=== PATIENT | male | born 1985 | race African-American/Black ===

== ENCOUNTER 2024-08-15 13:53 | Emergency (ER) | payer OTHER, SELFPAY ==
--- NOTE | ~2024-08-15 | CT_ITS ---
EXAMINATION: CT ABDOMEN AND PELVIS WITHOUT CONTRAST CLINICAL INFORMATION: Severe left flank pain. COMPARISON: None available. TECHNIQUE: Multidetector volumetric imaging was performed from the superior aspect of the liver through the pubic symphysis. Sagittal and coronal reformatted images were obtained on the technologist's workstation. This CT examination was performed using dose optimization techniques as appropriate, variously including the following: *Automated exposure control *Adjustment of mA and/or kV according to patient size (this includes techniques or standardized protocols for targeted exams where dose is matched to indication/reason for exam; i.e. extremities or head) *Use of iterative reconstruction technique DLP: 611 mGy-cm FINDINGS: LUNG BASES: No pleural or pericardial effusion. Small hiatal hernia. LIVER, GALLBLADDER, AND BILIARY TREE: The noncontrast liver is normal in size and contour. 1.9 cm hypodensity in the posterior right hepatic lobe. No biliary ductal dilatation is present. Gallstones are suspected. PANCREAS: Unremarkable. SPLEEN: Unremarkable. ADRENAL GLANDS: Unremarkable. KIDNEYS AND URETERS: Symmetric in size. Bilateral nonobstructing renal calculi. The largest nonobstructing calculus measures 9 mm in the left lower pole. 4 mm calculus in the distal left ureter proximal to the left ureterovesical junction. Mild left hydroureter. No perinephric fluid collection. BLADDER: No bladder calculus. GASTROINTESTINAL TRACT: Small and large bowel loops are of normal caliber. No small bowel obstruction. Appendix is within normal limits. ABDOMINAL WALL: Small fat-containing left adrenal hernia. LYMPH NODES: Few subcentimeter mesenteric lymph nodes. VASCULAR: Normal caliber abdominal aorta. PELVIC VISCERA: Enlarged prostate gland. OSSEOUS STRUCTURES: No destructive bone lesions. CT/CT abdomen pelvis wo IV con IMPRESSION: 4 mm calculus in the distal left ureter. Mild left hydroureter. Bilateral nonobstructing nephrolithiasis. Possible cholelithiasis. Electronically signed by: Jono Castellanos MD 08/15/2024 03:47 PM EST
--- NOTE | ~2024-08-15 | US_ITS ---
EXAMINATION: US SCROTUM CLINICAL INFORMATION: Left testicular pain. COMPARISON: None available. TECHNIQUE: A sonogram of the scrotum was performed assessing grissom-scale appearance and color Doppler flow. Spectral Doppler analysis of the arterial and venous flow were performed in the testes bilaterally. FINDINGS: RIGHT: Right testicle measures 4.6 x 1.9 x 2.7 cm, volume 12.1 mL. No focal testicular parenchymal lesions are visualized. Spectral Doppler analysis of the arterial and venous flow is normal in the right testis. Right epididymal head is normal in size. No right hydrocele or varicocele is seen. Right epididymal Doppler flow is normal. LEFT: Left testicle measures 4.0 x 1.6 x 2.5 cm, volume 8.6 mL. No focal testicular parenchymal lesions are visualized. Spectral Doppler analysis of the arterial and venous flow is normal in the left testis. Left epididymal head is normal in size. No left hydrocele or varicocele is seen. Left epididymal Doppler flow is normal. US/US scrotum IMPRESSION: Unremarkable scrotal ultrasound. Electronically signed by: Jono Castellanos MD 08/15/2024 03:07 PM RAHUL PEREZ
--- NOTE | ~2024-08-15 | US_ITS ---
EXAMINATION: US SCROTUM CLINICAL INFORMATION: Left testicular pain. COMPARISON: None available. TECHNIQUE: A sonogram of the scrotum was performed assessing grissom-scale appearance and color Doppler flow. Spectral Doppler analysis of the arterial and venous flow were performed in the testes bilaterally. FINDINGS: RIGHT: Right testicle measures 4.6 x 1.9 x 2.7 cm, volume 12.1 mL. No focal testicular parenchymal lesions are visualized. Spectral Doppler analysis of the arterial and venous flow is normal in the right testis. Right epididymal head is normal in size. No right hydrocele or varicocele is seen. Right epididymal Doppler flow is normal. LEFT: Left testicle measures 4.0 x 1.6 x 2.5 cm, volume 8.6 mL. No focal testicular parenchymal lesions are visualized. Spectral Doppler analysis of the arterial and venous flow is normal in the left testis. Left epididymal head is normal in size. No left hydrocele or varicocele is seen. Left epididymal Doppler flow is normal. US/US scrotum doppler IMPRESSION: Unremarkable scrotal ultrasound. Electronically signed by: Jono Castellanos MD 08/15/2024 03:07 PM RAHUL PEREZ
[2024-08-15 13:55] VITALS: BP 146/74; PULSE 86; RESP 20; TEMP 36.1; O2SAT 99; BMI 31.4
--- NOTE | 2024-08-15 13:57 | ED.GENADULT ---
HPI - General Adult General Chief complaint: Urogenital-Male Stated complaint: Abd pain Time Seen by Provider: 08/15/24 14:03 Source: patient Mode of arrival: ambulatory Limitations: no limitations History of Present Illness ED Provider: GILLES AMAYA narrative: 39 yo male with no sig PMH noted had some L upper testicular pain yesterday which didn't bother him much until waking up from a nap today post working overnights. He now has severe L testicle pain radiates up to the stomach - has mild nausea. No dysuria, no recent intercourse no concern for STI, no diarrhea, no fevers. He states no trauma or injury to the area. No rash. Pain is severe right now MD complaint: testicular pain Onset (ago): hour(s) (couple) Location: genitals Radiation: non-radiation Severity: severe Quality: stabbing Pain Consistency: constant Relieving factors: none Exacerbating factors: movement Associated symptoms: nausea/vomiting Treatments prior to arrival: none Related Data Previous Rx's ?Medication ?Instructions ?Recorded ibuprofen 400 mg tablet 400 mg PO Q6H PRN pain #20 tabs 08/15/24 ondansetron 4 mg disintegrating 4 mg PO TID PRN nausea and 08/15/24 tablet vomiting 5 days #10 tabs oxycodone 5 mg tablet 5 mg PO Q8H PRN pain #7 tabs 08/15/24 tamsulosin 0.4 mg capsule (Flomax) 0.4 mg PO DAILY #7 caps 08/15/24 Allergies Allergy/AdvReac Type Severity Reaction Status Date / Time No Known Allergies Allergy Verified 08/15/24 13:56 Review of Systems Review of Systems: Constitutional : No Weight loss, No Fever, No Chills ENT/Mouth : No sore throat, No Rhinorrhea Eyes: No Swelling, No Redness Cardiovascular : No Chest Pain, No SOB, No Edema Respiratory : No Cough, No Sputum, No Wheezing Gastrointestinal : Positive Nausea, no Vomiting, no Diarrhea, no abdominal Pain, No Hematochezia, No Melena Genitourinary : No Dysuria, No Urinary Frequency, No Hematuria, No Urgency , pos testicular pain Musculoskeletal : No joint pain, No Myalgias, No Joint Swelling Skin : No Skin Lesions, No rash Neuro : No Weakness, No Numbness, No Dizziness, No Headache Psych : No Anxiety/Panic, No Depression Heme/Lymph: No Bruising, No Lymphadenopathy Endocrine : No Polyuria, No Polydipsia All other systems reviewed and are negative. [facility] Past Medical History Attestation statement: The following information was validated with the patient. Source: old records reviewed Medical History No pertinent past medical history Social History Social History (Updated 08/15/24 @ 14:17 by Tahmina Maurice DO) Patient Tobacco Use Status: Tobacco use Unknown Smoked in Last 30 Days: No Use of substances other than those prescribed or required for medical reasons: No Advance Directives: No Advance Directives Information Provided: No Do you have a plan to hurt others: No Plan Physical Exam ED Vital Signs: Vital Signs - 24 hr 08/15/24 13:55 08/15/24 14:51 08/15/24 15:59 Temperature 97.0 F Pulse Rate 86 73 Respiratory Rate 20 16 20 Blood Pressure 146/74 H 102/51 L Pulse Oximetry 99 98 Oxygen Delivery Method Room Air Room Air 08/15/24 16:00 Temperature Pulse Rate 95 Respiratory Rate 18 Blood Pressure 128/59 L Pulse Oximetry 98 Oxygen Delivery Method Room Air BMI result Body Mass Index 31.4 Appearance: Alert. Oriented X3. in pain mild acute distress. Eyes: Pupils equal, round and reactive to light. ENT: Pharynx normal. Neck: Normal inspection. Neck supple. CVS: Normal heart rate and rhythm. Pulses normal. Respiratory: No respiratory distress. Breath sounds normal. Abdomen: Soft and nontender. : no ttp to spermatic cord, normal Skin: Skin warm and dry. pale skin color. Normal skin turgor. Extremities: No lower extremity edema. No calf ttp Neuro: Oriented X 3. No motor deficit. No sensory deficit. Course Course Course Narrative: RME: 9 year male presents to ED for sudden left testicular pain since last night without any trauma. Patient states left testicular pain radiating to her left lower quadrant abdominal pain patient denies any trauma or dysuria or hematuria. Labs ultrasound ordered. Reevaluation(s) Reevaluation #1: signed out to Dr. Kearney pending CT scan Medications Administered Discontinued Medications Generic Name Dose Route Start Last Admin Trade Name Freq PRN Reason Stop Dose Admin Hydromorphone HCl 1 mg 08/15/24 14:17 08/15/24 15:59 Hydromorphone Hcl 1 Mg/Ml Syringe IVPUSH 08/15/24 14:18 1 mg ONCE ONE Administration Protocol Sodium Chloride 1,000 mls @ 999 mls/hr 08/15/24 14:01 08/15/24 16:21 Ns IV 08/15/24 15:01 Infused .Q1H1M STA Infusion Ketorolac Tromethamine 15 mg 08/15/24 14:03 08/15/24 14:11 Ketorolac Tromethamine 15 Mg/Ml Vial IVPUSH 08/15/24 14:04 15 mg ONCE ONE Administration Morphine Sulfate 4 mg 08/15/24 14:01 08/15/24 14:11 Morphine Sulfate 4 Mg/Ml Cartridge IVPUSH 08/15/24 14:02 4 mg ONCE ONE Administration Protocol Ondansetron HCl 4 mg 08/15/24 14:01 08/15/24 14:11 Ondansetron Hcl 4 Mg/2 Ml Vial IVPUSH 08/15/24 14:02 4 mg ONCE ONE Administration Medical Decision Making Medical Decision Making MDM Narrative: 39 yo male no PMH no trauma to testicle here with severe testicular pain though exam underwhelming at this time suspect more renal colic but will need labs, UA, US for torsion if negative plan for CT scan for renal colic. IV toradol/morphine for pain. Patient is urine shows evidence of blood. CT scan positive for distal ureteral stone. Pain is controlled well-appearing no distress will discharge patient home Differential Diagnosis Differential Diagnoses: The differential diagnosis associated with the presentation includes renal colic, torsion, epididymitis Admission/Observation Consideration of admission/observation: Escalation of care including admission/observation considered Lab Data [facility] Lab Attestation statement: I reviewed the patient's lab results. 08/15/24 14:05 08/15/24 14:05 Labs: Lab Results 08/15/24 08/15/24 Range/Units 14:05 15:05 WBC 5.6 (4.8-10.8) X10*3/uL RBC 4.70 (4.60-5.80) X10*6/uL Hgb 14.5 (14.0-18.0) g/dl Hct 41.6 L (42.0-52.0) % MCV 88.5 (80.0-98.0) fL MCH 30.9 (27.0-33.0) pg MCHC 34.9 (31.0-36.0) g/dl RDW 13.0 (11.0-16.0) % Plt Count 252 (160-400) X10*3/uL MPV 10.5 (9.4-12.4) fL Immature Gran % (Auto) 0.2 (0.0-0.4) % Neut % (Auto) 37.2 L (45-73) % Lymph % (Auto) 46.8 H (20-40) % [place] % (Auto) 8.1 (2-11) % Eos % (Auto) 7.2 H (0-4) % Baso % (Auto) 0.5 (0-2) % Lymph # (Auto) 2.6 (1.2-4.9) X10*3/uL [place] # (Auto) 0.5 (0.1-1.2) X10*3/uL Eos # (Auto) 0.4 (0.0-0.4) X10*3/uL Baso # (Auto) 0.0 (0.0-0.2) X10*3/uL Abs Immat Gran (auto) 0.01 (0.00-0.03) X10*3/uL Absolute Neuts (auto) 2.1 (2.0-8.3) x10*3/uL Absolute Nucleated RBC 0.000 (0.0-0.012) X10*3/uL Nucleated RBC % (auto) 0.0 (0.0-0.2) /100WBC Sodium 142 (135-145) mmol/L Potassium 3.4 (3.3-5.1) mmol/L Chloride 104 (96-108) mmol/L Carbon Dioxide 27 (22-29) mmol/L Anion Gap 14 (12-20) BUN 13 (9-16) mg/dL Creatinine 0.93 (0.5-1.4) mg/dL Estim Creat Clear Calc 131.0 Estimated GFR > 60 Random Glucose 122 H (60-115) mg/dL Calcium 9.7 (8.4-10.2) mg/dL Total Bilirubin 1.0 (0.0-1.0) mg/dL AST 24 (5-37) U/L ALT 32 (0-40) U/L Alkaline Phosphatase 72 (39-117) U/L Total Protein 7.9 (6.5-8.0) g/dL Albumin 4.5 (3.5-5.0) g/dL Urine Color Dark Yellow Urine Appearance Clear Urine pH 6.0 (5.0-9.0) Ur Specific [place] >= 1.030 H (1.005-1.025) Urine Protein 30 (1+) H (Neg-Trace) mg/dL Urine Glucose (UA) Negative (Negative) mg/dL Urine Ketones Trace (Negative) mg/dL Urine Blood Large (3+) H (Negative) Urine Nitrite Negative (Negative) Ur Leukocyte Esterase Trace H (Negative) Urine RBC >20 H (0-2) /HPF Urine WBC 0-5 (0-5) /HPF Ur Squamous Epith Cells 0-2 (0-2) /HPF Urine Bacteria None Seen (None Seen) Hyaline Casts 3-5 (0-2) /LPF Independent Interpretation I performed an independent interpretation of an: Ultrasound (normal ) and CT Scan Radiology Impression Discussion of test interpretation with radiology: I have reviewed the radiologist's reading. Discharge Plan Discharge Clinical Impression: Left testicular pain, Renal colic Patient Disposition: Home, Self-Care Instructions: Renal Colic (ED) Prescriptions: New tamsulosin [Flomax] 0.4 mg capsule 0.4 mg PO DAILY Qty: 7 0RF ibuprofen 400 mg tablet 400 mg PO Q6H PRN (Reason: pain) Qty: 20 0RF ondansetron 4 mg tablet,disintegrating 4 mg PO TID PRN (Reason: nausea and vomiting) 5 Days Qty: 10 0RF oxycodone 5 mg tablet 5 mg PO Q8H PRN (Reason: pain) Qty: 7 0RF Rx Instructions: Partial Fill upon patient request. Referrals: Malik Knox MD [Physician] - 08/18/24 Print Language: Spanish
[2024-08-15] MEDS: 0.9 % Sodium Chloride 1,000 ML 999 ML IV (14:06)
[2024-08-15 14:11] LABS: MANUAL DIFF FLAG NO
[2024-08-15] MEDS: ondansetron HCL 4 MG/2 ML VIAL IVPUSH (14:11)
[2024-08-15] MEDS: Morphine Sulfate 4 MG/ML CARTRIDGE IVPUSH (14:11)
[2024-08-15] MEDS: Ketorolac Tromethamine 15 MG/ML VIAL IVPUSH (14:11)
[2024-08-15 14:12] LABS: Basophils Percent Auto 0.5 % (0-2); Eosinophils Absolute Auto 0.4 X10*3/uL (0.0-0.4); Eosinophils Percent Auto 7.2 % (0-4); Hematocrit 41.6 % (42.0-52.0); Hemoglobin 14.5 g/dl (14.0-18.0); Imm Gran Abs Auto 0.01 X10*3/uL (0.00-0.03); Imm Gran Pct Auto 0.2 % (0.0-0.4); Lymphocytes Absolute Auto 2.6 X10*3/uL (1.2-4.9); Lymphocytes Percent Auto 46.8 % (20-40); Mean Corpuscular HGB Conc 34.9 g/dl (31.0-36.0); Mean Corpuscular Hemoglobin 30.9 pg (27.0-33.0); Mean Corpuscular Volume 88.5 fL (80.0-98.0); Mean Platelet Volume 10.5 fL (9.4-12.4); Monocytes Absolute Auto 0.5 X10*3/uL (0.1-1.2); Monocytes Percent Auto 8.1 % (2-11); Neutrophils Absolute Auto 2.1 x10*3/uL (2.0-8.3); Neutrophils Percent Auto 37.2 % (45-73); Platelet Count 252 X10*3/uL (160-400); White Blood Count 5.6 X10*3/uL (4.8-10.8)
[2024-08-15 14:28] LABS: Alanine Aminotransferase 32 U/L (0-40); Albumin Level 4.5 g/dL (3.5-5.0); Alkaline Phosphatase 72 U/L (39-117); Anion Gap 14 (12-20); Aspartate Amino Transferase 24 U/L (5-37); Blood Urea Nitrogen 13 mg/dL (9-16); Calcium 9.7 mg/dL (8.4-10.2); Carbon Dioxide 27 mmol/L (22-29); Chloride 104 mmol/L (96-108); Estimated Glomerular Filt Rate > 60; Glucose Random 122 mg/dL (60-115); Potassium 3.4 mmol/L (3.3-5.1); Sodium 142 mmol/L (135-145); Total Protein 7.9 g/dL (6.5-8.0)
[2024-08-15 14:51] VITALS: BP 102/51; PULSE 73; RESP 16; O2SAT 98
[2024-08-15 15:15] LABS: Appearance Urine Clear; Color Urine Dark Yellow; Glucose Urine UA Negative (Negative); Leukocyte Esterase Urine Trace (Negative); Nitrite Urine Negative (Negative); Specific Gravity - Urine >= 1.030 (1.005-1.025); UMIC TRIGGER UACC YES; Urine Blood Large (3+) (Negative); Urine Ketones Trace mg/dL (Negative); Urine Protein 30 (1+) mg/dL (Neg-Trace)
[2024-08-15 15:17] LABS: Bacteria Urine None Seen (None Seen); RBC Urine >20 /HPF (0-2); Squamous Epithelial Cell Urine 0-2 /HPF (0-2); WBC Urine 0-5 /HPF (0-5)
[2024-08-15 15:59] VITALS: RESP 20
[2024-08-15] MEDS: HYDROmorphone HCl 1 MG/ML SYRINGE IVPUSH (15:59)
[2024-08-15 16:00] VITALS: BP 128/59; PULSE 95; RESP 18; O2SAT 98
[2024-08-15 16:59] VITALS: BP 128/59; PULSE 95; RESP 18; TEMP 36.7; O2SAT 98
[2024-08-16 03:52] LABS: CT PCR NOT DETECTED (Not Detect.); NG PCR NOT DETECTED (Not Detect.)
== END 2024-08-15 17:00 | disposition home or self-care (01) ==
PROVIDERS: Physician Assistant; Emergency Provider Emergency Medicine Emergency Medical Services; PCP Internal Medicine
DX: N50.812 Left testicular pain (principal); R11.0 Nausea; N23 Unspecified renal colic; R80.0 Isolated proteinuria; Z79.899 Other long term (current) drug therapy
CPT/HCPCS: 36415; 74176; 76870; 80053; 81001; 85025; 87491; 87591; 93975; 96374; 96375; 99284; 99285; J1171; J1885; J2270; J2405

== ENCOUNTER 2024-11-25 07:52 | Outpatient (AMB) | payer OTHER, SELFPAY ==
--- NOTE | 2024-11-25 08:00 | A.OFFVIS_ITS ---
Intake Visit Reasons: bilateral nephrolithiasis Intake Note: New Patient presents for initial visit for bilateral nephrolithiasis Urology Medications: none Blood Thinner: none Coffee Urn Attendant Required: No Accompanied by: Self / Same As Patient Allergies No Known Allergies Allergy (Verified 11/25/24 08:39) Medication List - Last Reconciled 11/25/24 by GEE King multivitamin 1 tab PO DAILY HPI Comments Details: Tomas is a very pleasant 39-year-old male patient of Dr. Megan Brock. He presents to the office today as a new patient for nephrolithiasis. In discussion with the patient today he reports having seeked emergency room care approximately 3 months ago for left-sided testicular discomfort and flank pain he had been experiencing at which time a CT of the abdomen was ordered and performed and these results were communicated with the patient today. CT 08/22 notes kidneys are symmetric in size. Bilateral nonobstructing renal calculi. The largest nonobstructing calculus measures 9 mm in the left lower pole. There is a 4 mm calculus in the left distal ureter proximal to the left UVJ. Mild left hydroureter. No perinephric fluid collection. No bladder calculus noted. When asked he has no prior history of renal stones and or surgical intervention for nephrolithiasis. Patient reports pain he had been experiencing has since subsided however he does not recall passage of stone. He currently denies any bothersome urinary issues. He denies urinary urgency, urinary frequency, incontinence, nocturia, hematuria, dysuria, foul smelling urine, changes to urinary stream, flank pain, fever, and or chills. He is happy with his current voiding parameters. We discussed at length potential causes of nephrolithiasis as well as further workup in risks and benefits of these interventions. All questions were answered. He otherwise offers no other issues or concerns at this time. Patient was informed and verbally consented to the use of an ambient scribe for clinic note documentation during this visit. Discussion Notes We reviewed the stone types and the possibility that his stones could be calcium oxalate-based, advising him to monitor dietary intake accordingly. The importance of hydration was emphasized, suggesting a daily urinary output goal equivalent to 2-2.5 liters. Vitamin B6 supplementation was recommended to aid stone prevention. We agreed to further discuss management options following the ultrasound results. Patient Instructions - Increase fluid intake to ensure urinary output matches approximately 2.5 liters per day. - Begin taking Vitamin B6, 100 mg, orally daily. - Schedule and complete ultrasound as directed for follow-up evaluation of k idney stones. - Add fresh lemon juice to water throughout the day as a potential aid. - Monitor for any return of pain; if symptoms occur, contact the office or seek medical attention. - Follow-up after the ultrasound results are reviewed for additional recommendations. [facility] Medical History No pertinent past medical history Social History Patient Tobacco Use Status: Tobacco use Unknown Review of Systems Const All systems reviewed & are unremarkable except as noted in HPI and below Physical Exam Const General: cooperative, healthy appearing, comfortable, no acute distress, well developed, alert and awake Orientation/consciousness: patient oriented x3 Limitations: no limitations HEENT Head: Yes normal to inspection, Yes normocephalic and Yes atraumatic Ears: hearing grossly normal bilaterally Eyes General: appearance normal, both eyes and all related structures Neck Neck: Yes normal visual inspection and Yes trachea midline Chest Chest palpation & inspection: normal inspection of the chest Resp Effort & Inspection: normal respiratory effort and able to speak in complete sentences Cardio Rate: regular rate GI Inspection: Yes normal to inspection General: Yes no CVA tenderness Back/Spine/Pelvis Back: no CVA tenderness Skin General skin exam: no rashes or lesions noted Neuro General: patient oriented x3 Extrem General: Yes normal to inspection Psych Appearance: grossly normal and well kempt Mental Status: mental status grossly normal Speech and movement: Normal speech and movement present and Clear speech present Affect: normal affect Attitude: cooperative Thought process: Normal thought process present Thought content: Normal thought content present Insight: Fair insight present (Psych) Judgement: Fair judgement present (Psych) Results AMB Urinalysis, Automated UA Leukoctes 0 Leia/uL Last Edit by Marcos Thompson on 11/25/24 08:17 UA Nitrite Negative Last Edit by [employer] Bress on 11/25/24 08:17 UA Urobilinogen 0.2 mg/dL Last Edit by Speaking[employer] Bress on 11/25/24 08:17 UA Protein 15 mg/dL Last Edit by [employer] Nadegess on 11/25/24 08:17 UA pH 6.0 Last Edit by [employer] Jay on 11/25/24 08:17 UA Blood 10 Harvey/uL Last Edit by [employer] Music[employer]ira on 11/25/24 08:17 UA Specific [place] 1.025 Last Edit by [employer] on 11/25/24 08:17 UA Ketone Last Edit by [employer] on 11/25/24 08:17 UA Bilirubin 0 mg/dL Last Edit by [employer] on 11/25/24 08:17 UA Glucose 0 mg/dL Last Edit by [employer]hardik [employer] on 11/25/24 08:17 Results Reviewed Results Reviewed: Laboratory Last Values Urine pH (Auto) 6.0 11/25/24 08:16 Specific [place] (Auto) 1.025 11/25/24 08:16 Urine Protein (Auto) 15 mg/dL 11/25/24 08:16 Glucose (UA)(Auto) 0 mg/dL 11/25/24 08:16 Urine Blood (Auto) 10 Harvey/uL 11/25/24 08:16 Urine Nitrite (Auto) Negative 11/25/24 08:16 Urine Bilirubin (Auto) 0 mg/dL 11/25/24 08:16 Urine Urobilinogen (Auto) 0.2 mg/dL 11/25/24 08:16 Leukocyte Esterase (Auto) 0 Leia/uL 11/25/24 08:16 Date of Service: 08/15/24 EXAMINATION: CT ABDOMEN AND PELVIS WITHOUT CONTRAST FINDINGS: LUNG BASES: No pleural or pericardial effusion. Small hiatal hernia. LIVER, GALLBLADDER, AND BILIARY TREE: The noncontrast liver is normal in size and contour. 1.9 cm hypodensity in the posterior right hepatic lobe. No biliary ductal dilatation is present. Gallstones are suspected. PANCREAS: Unremarkable. SPLEEN: Unremarkable. ADRENAL GLANDS: Unremarkable. KIDNEYS AND URETERS: Symmetric in size. Bilateral nonobstructing renal calculi. The largest nonobstructing calculus measures 9 mm in the left lower pole. 4 mm calculus in the distal left ureter proximal to the left ureterovesical junction. Mild left hydroureter. No perinephric fluid collection. BLADDER: No bladder calculus. GASTROINTESTINAL TRACT: Small and large bowel loops are of normal caliber. No small bowel obstruction. Appendix is within normal limits. ABDOMINAL WALL: Small fat-containing left adrenal hernia. LYMPH NODES: Few subcentimeter mesenteric lymph nodes. VASCULAR: Normal caliber abdominal aorta. PELVIC VISCERA: Enlarged prostate gland. OSSEOUS STRUCTURES: No destructive bone lesions. IMPRESSION: 4 mm calculus in the distal left ureter. Mild left hydroureter. Bilateral nonobstructing nephrolithiasis. Possible cholelithiasis. Assessment & Plan Assessment & Plan (1) Nephrolithiasis: Code(s): N20.0 - Calculus of kidney Category: Medical Plan In office urinalysis results with the patient today; as noted above. Recent CT results reviewed with the patient today; as noted above. We discussed at length potential causes of nephrolithiasis as well as further workup in risks and benefits of these interventions. Will obtain renal ultrasound for further assessment evaluation. Patient currently denies any bothersome urinary issues. He reports be happy with current voiding parameters. Discussed, educated, and stressed at length the importance of adequate hydration in relation to nephrolithiasis as well as overall health and well-being. Follow-up in 1-3 months with imaging to be completed prior; or sooner with any issues, concerns, and or questions. Orders: Orders AMB Urinalysis Automated Today GEE King Z13.9 - Encounter for screening, unspecified Medications: Discontinued ondansetron Discontinued Reason: Patient no longer taking 4 mg PO TID PRN 10 tabs 0RF nausea and vomiting 5 days Brandyce Bress oxycodone Partial Fill upon patient request. Discontinued Reason: Patient no longer taking 5 mg PO Q8H PRN 7 tabs 0RF pain Brandyce Bress tamsulosin (Flomax) Discontinued Reason: Patient no longer taking 0.4 mg PO DAILY 7 caps 0RF Brandyce Bress ibuprofen Discontinued Reason: Patient no longer taking 400 mg PO Q6H PRN 20 tabs 0RF pain Brandyce Bress Patient Instructions: The patient had an opportunity to ask questions regarding the treatment plan. All questions were answered. Physical exam, labs, and imaging were discussed and reviewed in detail. As well as risks, benefits, and discussion of treatment choices. No major barriers to understanding were identified. The patient expressed understanding and agreement with the above treatment plan. The patient was made aware they should contact our office by phone for worsening of their current condition, the appearance of new symptoms, or with any questions or concerns. Compliance is encouraged with any medications and follow up testing that is ordered. It is a privilege to be allowed the opportunity to participate in? your urological care.? Again, if you have any questions or concerns If you have any questions or concerns please do not hesitate to contact me. The office is [phone]. This note is constructed using voice recognition software. While every effort has been made to ensure accuracy incoming freight clerk errors may have been included. Yours sincerely, GEE King Coding Level of Care Code New Pt Level 3 (83696) Diagnoses Nephrolithiasis N20.0
== END 2024-11-25 08:36 | disposition home or self-care (01) ==
PROVIDERS: PCP Internal Medicine; Visit Provider Nurse Practitioner Family
DX: Z13.9 Encounter for screening, unspecified (principal); N20.0 Calculus of kidney
CPT/HCPCS: 99203

== ENCOUNTER → 2024-11-25 07:52 | Outpatient (BNVA) | payer SELFPAY | PROVIDERS: PCP Internal Medicine; Visit Provider Nurse Practitioner Family | DX: N20.0 Calculus of kidney (principal) | CPT/HCPCS: 81003 ==

== ENCOUNTER 2024-12-09 11:04 | Outpatient (REF) | payer OTHER, SELFPAY ==
--- NOTE | ~2024-12-09 | US_ITS ---
CLINICAL HISTORY: N20.0 - Calculus of kidney US renal with Color Doppler Comparison: None Findings: Right kidney normal size and echotexture, 12.2 cm length. No hydronephrosis or mass. Normal color flow. Nonobstructing caliceal stones lower pole measuring 3 x 3 x 2 mm and 4 x 3 x 3 mm. Left kidney normal size and echotexture, 13.5 cm length. No hydronephrosis or mass. Normal color flow. Nonobstructing caliceal stone lower pole measuring 10 x 7 x 9 mm, midpole measuring 6 x 5 x 4 mm and upper pole measuring 5 x 5 x 5 mm. Impression: 1. Bilateral nephrolithiasis. No hydronephrosis. This document has been electronically signed by: Corby Rinaldi MD on 12/10/2024 09:10:13
== END 2024-12-09 11:05 | disposition home or self-care (01) ==
LOC: HO.HMGCX 11:04
PROVIDERS: PCP Family Medicine; Visit Provider Nurse Practitioner Family
DX: N20.0 Calculus of kidney (principal)
CPT/HCPCS: 76775

== ENCOUNTER → 2024-12-09 11:07 | Outpatient (BNV) | payer OTHER, SELFPAY | PROVIDERS: PCP Family Medicine; Visit Provider Radiology Diagnostic Radiology | DX: N20.0 Calculus of kidney (principal) | CPT/HCPCS: 76775 ==

== ENCOUNTER 2024-12-16 16:47 | Outpatient (AMB) | payer OTHER, SELFPAY ==
--- NOTE | 2024-12-16 16:40 | A.OFFVIS_ITS ---
Intake Visit Reasons: 3 weeks follow up/ US(pending 12/09) Intake Note: Patient presents for follow up visit for bilateral nephrolithiasis and ultrasound results Imaging Completed: 12/09/24 Urology Medications: none Blood Thinner: none Race Starter Required: No Accompanied by: Self / Same As Patient Allergies No Known Allergies Allergy (Verified 11/25/24 08:39) Medication List - Last Reconciled 12/16/24 by GEE King multivitamin 1 tab PO DAILY HPI Comments Details: Tomas is a very pleasant 39-year-old male patient of Dr. Rocha. He is being followed up on today via video telehealth. Of note, patient was seen approximately 1 month ago as a new patient for nephrolithiasis at which time a renal ultrasound was ordered for further assessment evaluation. These results were reviewed and communicated with the patient today. 12/21 bilateral kidneys are normal in size and echotexture. Nonobstructing renal stones noted bilaterally. No hydronephrosis. Right kidney with 3 mm and 4 mm nonobstructing caliceal stones. Left kidney with 10 mm, 6 mm, and 5 mm nonobstructing stones. We discussed resolution of 4 mm calculus in the left distal ureter proximal to the left UVJ noted on previous CT 08/22. He currently denies any bothersome urinary issues or concerns. He reports be happy with current voiding parameters. Discusses continuing to attempt to drink plenty of water daily. We discussed potential causes of nephrolithiasis as well as further intervention to include imaging and metabolic workup. He denies any previous history of nephrolithiasis and or surgical intervention for nephrolithiasis. He denies urinary urgency, urinary frequency, incontinence, nocturia, hematuria, dysuria, foul smelling urine, changes to urinary stream, flank pain, fever, and or chills. He is happy with his current voiding parameters. We discussed at length potential causes of nephrolithiasis as well as further workup in risks and benefits of these interventions. All questions were answered. He otherwise offers no other issues or concerns at this time. Discussion Notes We reviewed the stone types and the possibility that his stones could be calcium oxalate-based, advising him to monitor dietary intake accordingly. The importance of hydration was emphasized, suggesting a daily urinary output goal equivalent to 2-2.5 liters. Vitamin B6 supplementation was recommended to aid stone prevention. We agreed to further discuss management options following the ultrasound results. [facility] Medical History No pertinent past medical history Social History Patient Tobacco Use Status: Tobacco use Unknown Review of Systems Const All systems reviewed & are unremarkable except as noted in HPI and below Physical Exam Const General: cooperative, healthy appearing, comfortable, no acute distress, well developed, alert and awake Resp Effort & Inspection: normal respiratory effort and able to speak in complete sentences Psych Appearance: grossly normal and well kempt Mental Status: mental status grossly normal Speech and movement: Clear speech present Affect: normal affect Attitude: cooperative Thought content: Normal thought content present Insight: Fair insight present (Psych) Judgement: Fair judgement present (Psych) Telehealth Telehealth Telehealth Platform: [employer] Location of provider rendering services: practice address Location of patient: address on file Patient Identification confirmed using: Name, : Yes Telehealth method: video Patient verbally consented to treatment: Yes Patient verbally consented to billing insurance company: Yes Patient informed of any privacy concerns related to visit: Yes Minutes spent on Phone/Video with Pt.: 15 Results Reviewed Results Reviewed: Date of Service: 12/09/24 Procedure(s): US renal BI Findings: Right kidney normal size and echotexture, 12.2 cm length. No hydronephrosis or mass. Normal color flow. Nonobstructing caliceal stones lower pole measuring 3 x 3 x 2 mm and 4 x 3 x 3 mm. Left kidney normal size and echotexture, 13.5 cm length. No hydronephrosis or mass. Normal color flow. Nonobstructing caliceal stone lower pole measuring 10 x 7 x 9 mm, midpole measuring 6 x 5 x 4 mm and upper pole measuring 5 x 5 x 5 mm. Impression: 1. Bilateral nephrolithiasis. No hydronephrosis. Assessment & Plan Assessment & Plan (1) Nephrolithiasis: Code(s): N20.0 - Calculus of kidney Category: Medical Plan Recent renal imaging results reviewed with the patient today; as noted above. Patient currently denies any bothersome urinary issues or concerns. He reports be happy with current voiding parameters. We discussed at length potential causes of nephrolithiasis as well as further workup to include imaging and metabolic workup. Discussed, educated, and stressed the importance of continuing to drink plenty of water daily. Continue adding 1 oz of lemon juice to water daily. Will obtain CT KUB for further assessment evaluation. Follow-up in 1-3 months with imaging to be completed prior; or sooner with any issues, concerns, and or questions. Orders: Orders CT kidney stone 12/16/24 N20.0 - Calculus of kidney Patient Instructions: The patient had an opportunity to ask questions regarding the treatment plan. All questions were answered. Physical exam, labs, and imaging were discussed and reviewed in detail. As well as risks, benefits, and discussion of treatment choices. No major barriers to understanding were identified. The patient expressed understanding and agreement with the above treatment plan. The patient was made aware they should contact our office by phone for worsening of their current condition, the appearance of new symptoms, or with any questions or concerns. Compliance is encouraged with any medications and follow up testing that is ordered. It is a privilege to be allowed the opportunity to participate in? your urological care.? Again, if you have any questions or concerns If you have any questions or concerns please do not hesitate to contact me. The office is [phone]. This note is constructed using voice recognition software. While every effort has been made to ensure accuracy counselor supervisor errors may have been included. Yours sincerely, GEE King Coding Level of Care Code Tele Est Pt Level 3 (27563) Diagnoses Nephrolithiasis N20.0
== END 2024-12-16 16:50 | disposition home or self-care (01) ==
LOC: HO.HUSH 16:47
PROVIDERS: PCP Family Medicine; Visit Provider Nurse Practitioner Family
DX: N20.0 Calculus of kidney (principal)
CPT/HCPCS: 99213

== ENCOUNTER 2025-05-16 07:27 | Outpatient (REF) | payer OTHER, SELFPAY ==
--- NOTE | ~2025-05-16 | CT_ITS ---
CLINICAL HISTORY: N20.0 - Calculus of kidney CT abdomen and pelvis without contrast Comparison: US - US RENAL BI - 12/09/24 11:13 EDT Findings: No consolidation or effusion. Unremarkable gallbladder and solid organs. Left kidney lower pole 1.0 cm nonobstructing stone. Additional at least 2 punctate nonobstructing stones are noted within the left kidney. No bowel obstruction, pneumoperitoneum, or pneumatosis. Pelvic contents unremarkable. Normal appendix. The bones are intact. IMPRESSION: No acute findings. Left kidney lower pole 1.0 cm nonobstructing stone. Additional at least 2 punctate nonobstructing stones are noted within the left kidney. This document has been electronically signed by: Tyson Sandhu MD on 05/16/2025 20:38:46
== END 2025-05-16 07:28 | disposition home or self-care (01) ==
LOC: HO.CT 07:27
PROVIDERS: PCP Family Medicine; Visit Provider Nurse Practitioner Family
DX: N20.0 Calculus of kidney (principal)
CPT/HCPCS: 74176

== ENCOUNTER → 2025-05-16 07:28 | Outpatient (BNV) | payer OTHER, SELFPAY | PROVIDERS: PCP Family Medicine; Visit Provider Student in an Organized Health Care Education/Training Program | DX: N20.0 Calculus of kidney (principal) | CPT/HCPCS: 74176 ==

== ENCOUNTER 2025-07-13 07:23 | Outpatient (AMB) | payer OTHER, SELFPAY ==
--- NOTE | 2025-07-13 07:23 | A.OFFVIS_ITS ---
Intake Visit Reasons: discuss CT scan results Intake Note: Patient presents for follow up visit for bilateral nephrolithiasis and CT results Imaging Completed: 05/16/25 Urology Medications: none Blood Thinner: none [facility] Counselor Required: No Accompanied by: Self / Same As Patient Allergies No Known Allergies Allergy (Verified 07/13/25 09:03) Medication List - Last Reconciled 07/13/25 by GEE King multivitamin 1 tab PO DAILY HPI Comments Details: Tomas is a very pleasant 40-year-old male patient of Dr. Rocha. He is being followed up on today via video telehealth for his history of nephrolithiasis. In discussion with the patient today reports to be doing and feeling well. He d oes report noting intermittent episodes of dysuria over the last few weeks. However describes these episodes as infrequent and self-limiting. Recent CT KUB results reviewed with the patient today 05/23 Left kidney lower pole 1.0 cm nonobstructing stone. Additional at least 2 punctate nonobstructing stones are noted within the left kidney. He reports he continues to drink plenty of water daily. We did discussed further treatment options to include surveillance monitoring verses ureteroscopy verses lithotripsy. We discussed risks and benefits of these interventions. He does have a previous history of nephrolithiasis late last year however was able to independently pass his stone never requiring surgical intervention. He denies urinary urgency, urinary frequency, incontinence, nocturia, hematuria, foul smelling urine, changes to urinary stream, flank pain, fever, and or chills. We discussed at length potential causes of nephrolithiasis. All questions were answered. He otherwise offers no other issues or concerns at this time. [facility] Medical History No pertinent past medical history Social History Patient Tobacco Use Status: Tobacco use Unknown Review of Systems Const All systems reviewed & are unremarkable except as noted in HPI and below Physical Exam Const General: cooperative, healthy appearing, comfortable, no acute distress, well developed, alert and awake Orientation/consciousness: patient oriented x3 Resp Effort & Inspection: normal respiratory effort and able to speak in complete sentences Neuro General: patient oriented x3 Psych Appearance: grossly normal and well kempt Mental Status: mental status grossly normal Speech and movement: Normal speech and movement present and Clear speech present Affect: normal affect Attitude: cooperative Thought process: Normal thought process present Thought content: Normal thought content present Insight: Fair insight present (Psych) Judgement: Fair judgement present (Psych) Telehealth Telehealth Telehealth Platform: [employer] Location of provider rendering services: practice address Location of patient: address on file Patient Identification confirmed using: Name, : Yes Telehealth method: video Patient verbally consented to treatment: Yes Patient verbally consented to billing insurance company: Yes Patient informed of any privacy concerns related to visit: Yes Minutes spent on Phone/Video with Pt.: 20 Results Reviewed Results Reviewed: Date of Service: 05/16/25 Procedure(s): CT kidney stone Findings: No consolidation or effusion. Unremarkable gallbladder and solid organs. Left kidney lower pole 1.0 cm nonobstructing stone. Additional at least 2 punctate nonobstructing stones are noted within the left kidney. No bowel obstruction, pneumoperitoneum, or pneumatosis. Pelvic contents unremarkable. Normal appendix. The bones are intact. IMPRESSION: No acute findings. Left kidney lower pole 1.0 cm nonobstructing stone. Additional at least 2 punctate nonobstructing stones are noted within the left kidney. Assessment & Plan Assessment & Plan (1) Dysuria: Code(s): R30.0 - Dysuria Category: Medical (2) Nephrolithiasis: Code(s): N20.0 - Calculus of kidney Category: Medical Plan: Plan Extracorporeal Shock Wave Lithotripsy We discussed the nature of the decision and reasonable alternatives for performing the above surgery. Interventions include chemical dissolution, ESWL, ureteroscopy with laser lithotripsy and stent placement, PCNL. ? Options such as medical therapy were discussed. The relative uncertainties and benefits related to each alternate procedure were adequately discussed. General surgical risks including, but not limited to, pain, bleeding, infection, myocardial infarction, pulmonary embolus, deep vein thrombosis and cerebrovascular accident which may result in further hospitali zation were discussed.? Full disclosure of the procedure as well as all major risks, benefits and complications were discussed including but not limited to risks of bleeding, injury to the kidney with hematoma or laith-hematoma, failure to fragments stone, potential for ureteric obstruction from stone passage and need for secondary procedures.? There is a small long-term risk of hypertension and a question arun of diabetes.? Success rate of fragmentation and passage is approximately 70- 75%.? This is compared to the risks and benefits for ureteroscopy which has a higher success rate but is a more invasive procedure. The success rate of the procedure was discussed. Success of the procedure in the short-term does not necessarily guarantee that long-term success will be maintained. Suitable follow up will need to be maintained. The patient showed understanding of the discussion as well as the typical recovery time, and the outpatient nature of this procedure. Opportunity was given for questions. Repeat-back protocol used to confirm understanding. They wish to proceed with left ESWL Plan Recent CT KUB results reviewed with the patient today; as noted above; We discussed ureteroscopy verses as well versus surveillance monitoring; risks and benefits were discussed at length. All questions were answered. Will obtain urinalysis for further assessment evaluation; will await results for potential treatment We discussed the importance of adequate hydration relation to nephrolithiasis as well as overall health and well-being. Will schedule for left-sided ESWL as discussed Follow-up per doctor's orders; or sooner with any issues, concerns, and or questions. Orders: Orders UA CC w/rflx Micro + Cult Today R30.0 - Dysuria Patient Instructions: The patient had an opportunity to ask questions regarding the treatment plan. All questions were answered. Physical exam, labs, and imaging were discussed and reviewed in detail. As well as risks, benefits, and discussion of treatment choices. No major barriers to understanding were identified. The patient expressed understanding and agreement with the above treatment plan. The patient was made aware they should contact our office by phone for worsening of their current condition, the appearance of new symptoms, or with any questions or concerns. Compliance is encouraged with any medications and follow up testing that is ordered. It is a privilege to be allowed the opportunity to participate in? your urological care.? Again, if you have any questions or concerns If you have any questions or concerns please do not hesitate to contact me. The office is [phone]. This note is constructed using voice recognition software. While every effort has been made to ensure accuracy [employer] systems administrator errors may have been included. Yours sincerely, GEE King Coding Level of Care Code Tele Est Pt Level 4 (31326) Diagnoses Dysuria R30.0 Nephrolithiasis N20.0
== END 2025-07-13 08:30 | disposition home or self-care (01) ==
LOC: HO.HUSH 07:23
PROVIDERS: PCP Family Medicine; Visit Provider Nurse Practitioner Family
DX: R30.0 Dysuria (principal); N20.0 Calculus of kidney
CPT/HCPCS: 98967

== ENCOUNTER 2025-08-17 05:46 | Day surgery (SDC) | payer OTHER, SELFPAY ==
--- NOTE | ~2025-08-17 | XR_ITS ---
CLINICAL HISTORY: left kidney stone 1 view abdomen Comparison: None provided Findings: Included lung bases unremarkable. No plain film images of pneumoperitoneum or pneumatosis. The bowel loops are nondilated. There is moderate amount of stool in the colon There is a subcentimeter stone in the topography of the lower polar region of the left kidney. No acute fractures. IMPRESSION: The bowel gas pattern is within normal limits Left renal stone. This document has been electronically signed by: Mark Chun MD on 08/17/2025 06:48:39
[2025-08-17 06:24] VITALS: BMI 29.9
[2025-08-17 06:39] VITALS: BP 122/75; PULSE 77; RESP 16; TEMP 36.3; O2SAT 98
[2025-08-17] MEDS: Lactated Ringers 1,000 ML 100 ML IVCONT (06:47)
--- NOTE | 2025-08-17 07:15 | HO.ANESPROP2 ---
Documented by User: Radha Tucker NP 08/15/25 09:44 HPI - Anesthesia Eval Consult details Narrative: 40yo M for Cholecystectomy Laparoscopic,possible open PMFSH Active Problems Active Problems: All Active Problems Dysuria (Acute) Nephrolithiasis (Acute) Past Medical History Medical History No pertinent past medical history Surgical History Surgical History (Updated 08/17/25 @ 06:23 by Shannan Hodges RN) H/O shoulder surgery Social History Social History Patient Tobacco Use Status: Never used Tobacco Use of substances other than those prescribed or required for medical reasons: Yes Are you DNR?: No Advance Directives: No Advance Directives Information Provided: Yes Meds Allergies Allergy/AdvReac Type Severity Reaction Status Date / Time banana Allergy Anaphylaxis Verified 08/17/25 06:23 walnut Allergy Anaphylaxis Verified 08/17/25 06:23 watermelon Allergy Anaphylaxis Verified 08/17/25 06:23 Home Medications ?Medication ?Instructions ?Recorded ?Confirmed ?Last Taken ?Type multivitamin 1 tab PO DAILY 11/25/24 08/15/25 Unknown History Assessment and Plan Assessment Anesthesia Assessment: Chart Reviewed Documented by User: Shadia Thorne DO 08/17/25 07:35 PMFSH Past Medical History Medical History No pertinent past medical history Family History Family history of problems with anesthesia: No Surgical History Surgical History (Updated 08/17/25 @ 06:23 by Shannan Hodges RN) H/O shoulder surgery History of Problems with Anesthesia: No Social History Social History Patient Tobacco Use Status: Never used Tobacco Use of substances other than those prescribed or required for medical reasons: Yes Are you DNR?: No Advance Directives: No Advance Directives Information Provided: Yes Meds Allergies Allergy/AdvReac Type Severity Reaction Status Date / Time banana Allergy Anaphylaxis Verified 08/17/25 06:23 walnut Allergy Anaphylaxis Verified 08/17/25 06:23 watermelon Allergy Anaphylaxis Verified 08/17/25 06:23 Home Medications ?Medication ?Instructions ?Recorded ?Confirmed ?Last Taken ?Type multivitamin 1 tab PO DAILY 11/25/24 08/15/25 Unknown History Exam Exam Date and Time: 08/17/25 0715 Height,Weight and Vital Signs: Height 5 ft 11 in Weight 97.3 kg Vital Signs Temperature 97.3 F 08/17/25 06:39 Pulse Rate 77 08/17/25 06:39 Respiratory Rate 16 08/17/25 06:39 Blood Pressure 122/75 08/17/25 06:39 Pulse Oximetry 98 08/17/25 06:39 Oxygen Delivery Method Room Air 08/17/25 06:39 Temperature 97.3 F 08/17/25 06:39 Pulse Rate 77 08/17/25 06:39 Respiratory Rate 16 08/17/25 06:39 Blood Pressure 122/75 08/17/25 06:39 Pulse Oximetry 98 08/17/25 06:39 Oxygen Delivery Method Room Air 08/17/25 06:39 Airway Mallampati Class: II TM Dist: >3cm Neck ROM: Full Partial: Upper Heart: S1S2 Lungs: CTAB Assessment and Plan Assessment Anesthesia Assessment: Anesthesia Plan Discussed and Chart Reviewed Final Anesthetic Review Family History of Problems with Anesthesia: No History of Problems with Anesthesia: No NPO: Yes ASA Class: II Final Preanesthetic Review: No Changes in Pt Med Stat, Meds/Allgs Chart Reviewed, Consent Obtained/Reviewed and Anes Risks/Benef Reviewed Patient Risk: Low Procedure Risk: Low Anesthetic Plan Anesthetic Plan: MAC: and Agree w/ Assess. and Plan Disposition: Standard PACU
--- NOTE | 2025-08-17 07:34 | MHC.SHP ---
Pre-Procedural Eval Section A - 24 Hr Update-Section A only Date of Service: 08/17/25 The patient is an INPATIENT: No Changes since office visit: No Cold of Flu in the past 2 weeks, No New Medical Problems, No Changes in Medication and No Patient answered all questions The patient has been examined within 24 hours of the surgical procedure. The History & Physical has been completed within 30 days and I have reviewed it.: Yes Section B - Complete if H&P > 30 days Chief Complaint: Dysuria Details of Present Illness: left renal stone 1cm Allergies: Allergies Allergy/AdvReac Type Severity Reaction Status Date / Time banana Allergy Anaphylaxis Verified 08/17/25 06:23 walnut Allergy Anaphylaxis Verified 08/17/25 06:23 watermelon Allergy Anaphylaxis Verified 08/17/25 06:23 Plan I have reviewed the history and physical and performed a pertinent physical examination on my patient. No changes have occurred unless specified. Time Spent With Patient Time: Total time managing care of this patient today ____ minutes.
--- NOTE | 2025-08-17 07:52 | P.OP_ITS ---
Operative Note Operative Note Date of Service: 08/17/25 Narrative: PreOperative Diagnosis: Left Renal stones Post Operative Diagnosis: Left Renal stones Procedure: Left ESWL Surgeon: Dr Nahun Browne Anesthesia: mac/sedation Indications for procedure: The patient understands ESWL may be a staged procedure and subsequent intervention may be required based on imaging after ESWL. Quoted stone clearance rates for a solitary procedure are in the 70-80% range based primarily on stone location. They also understand there is a risk of bleeding to the kidney, infection, damage to adjacent organs, and stone migration following the procedure. - Imaging left 1 cm lower pole renal stone Procedure optimization has been performed with IV acetaminophen given in the holding area and 1 L of lactated Ringer's to be given in order to optimize the fluid-stone interface. 20 mg of IV Lasix will be given in the last 5 minutes of the procedure to optimize stone clearance. Procedure: After informed consent was verified the patient was brought to the operating room and placed in a supine position. Anesthesia was performed per protocol. Safety pause time-out was performed. Imaging was displayed in the room and laterality confirmed. ESWL was performed. The 1st 500 shocks were performed at 60 hertz. These were performed with increasing power. Once maximum power was reached the rate was increased to 180 hertz. A total of 2500 shocks were given. Targeted imaging with ultrasound/fluoroscopy showed stone smudging suggestive of disintegration. The patient tolerated the procedure well and was transferred to the recovery area upon completion. Post procedure imaging will be organized. There was no ev idence for flank discoloration.
[2025-08-17 08:11] VITALS: BP 116/77; PULSE 81; RESP 14; TEMP 36.3; O2SAT 96
[2025-08-17 08:15] VITALS: BP 111/81; PULSE 75; RESP 16; O2SAT 99
[2025-08-17 08:20] VITALS: BP 121/77; PULSE 74; RESP 16; O2SAT 99
[2025-08-17 08:25] VITALS: BP 120/83; PULSE 71; RESP 16; O2SAT 99
[2025-08-17 08:40] VITALS: BP 122/82; PULSE 68; RESP 15; TEMP 36.1; O2SAT 99
== END 2025-08-17 09:19 | disposition home or self-care (01) ==
PROVIDERS: PCP Family Medicine; Visit Provider Urology
PROC: (CPT 50590; principal; 2025-08-17 07:30)
DX: N20.0 Calculus of kidney (principal); R30.0 Dysuria
CPT/HCPCS: 50590; 74018; J0131; J2003; J2250; J2704; J3010

== ENCOUNTER → 2025-08-17 05:46 | Outpatient (BNV) | payer OTHER, SELFPAY | PROVIDERS: PCP Family Medicine; Visit Provider Urology | DX: N20.0 Calculus of kidney (principal) | CPT/HCPCS: 50590 ==

== ENCOUNTER → 2025-08-17 05:50 | Outpatient (BNV) | payer OTHER, SELFPAY | PROVIDERS: PCP Family Medicine; Visit Provider Radiology Diagnostic Radiology | DX: N20.0 Calculus of kidney (principal) | CPT/HCPCS: 74018 ==

== ENCOUNTER 2025-09-26 13:10 | Outpatient (REF) | payer OTHER, SELFPAY ==
--- NOTE | ~2025-09-26 | XR_ITS ---
EXAMINATION: XR ABDOMEN KUB CLINICAL INDICATION: N20.0 - Calculus of kidney COMPARISON: 08/17/2025. TECHNIQUE: AP view of the abdomen. FINDINGS: Study limited by abundant stool within the ascending and transverse colon, partially obscuring the renal shadows. There is a 3 mm calcification overlying the left kidney midpole (previously measuring up to 12 mm). There are no additional definitive calcifications identified overlying the renal shadows, or expected courses of the ureters. No abnormal bladder calcifications evident. Stable pattern of phleboliths present. No organomegaly. No large abdominal mass. Normal bowel gas pattern. Lung bases clear. No concerning osseous abnormalities. XR/XR KUB IMPRESSION: 1. There is a 3 mm calcification overlying the mid left renal shadow. There are no additional definitive renal calcifications. Electronically signed by: Milind Walker MD 09/26/2025 02:03 PM [facility]
--- NOTE | ~2025-09-26 | US_ITS ---
EXAMINATION: US KIDNEY BILATERAL HISTORY: N20.0 - Calculus of kidney TECHNIQUE: Real-time grayscale ultrasound imaging of the kidneys was performed and images were reviewed. COMPARISON: Comparison is made with the prior examination dated 12/09/2024. FINDINGS: Right kidney: The right kidney measures 11.8 x 5.0 x 5.4 cm. Renal parenchymal echotexture and thickness are normal. There are no masses. There is a nonobstructing 4 x 3 x 3 mm calculus at the lower pole. There is no hydronephrosis. Left Kidney: The left kidney measures 13.6 x 6.6 x 4.8 cm. Renal parenchymal echotexture and thickness are normal. There are no masses. Multiple nonobstructing calculi are noted including a 5 x 3 x 4 mm calculus at the upper pole, a 4 x 3 x 3 mm calculus in the interpolar region, and lower pole calculi measuring 6 x 4 x 4 mm and 3 x 2 x 5 mm. There is no hydronephrosis. US/US renal BI IMPRESSION: Bilateral nephrolithiasis as described. Electronically signed by: Jose Burleson MD 09/26/2025 01:52 PM EST
== END 2025-09-26 13:11 ==
LOC: HO.US 13:10
PROVIDERS: PCP Family Medicine; Visit Provider Urology
DX: N20.0 Calculus of kidney (principal)
CPT/HCPCS: 74018; 76775

== ENCOUNTER → 2025-09-26 13:11 | Outpatient (BNV) | payer OTHER, SELFPAY | PROVIDERS: PCP Family Medicine; Visit Provider Radiology Diagnostic Radiology | DX: N20.0 Calculus of kidney (principal) | CPT/HCPCS: 74018; 76775 ==